=== PATIENT | male | born 2000 | race Caucasian/White ===

== ENCOUNTER → 2020-04-27 | Outpatient (CLI) | payer OTHER | END | disposition home or self-care (01) | LOC: LAB 14:34 | PROVIDERS: ATTEND Registered Nurse | DX: B83.9 Helminthiasis, unspecified (principal) | CPT/HCPCS: 87045; 87177; 87209 ==

== ENCOUNTER 2020-06-15 13:55 | Emergency (ER) | payer OTHER ==
[~2020-06-15] VITALS: Ht 175.3 cm; Wt 84.5 kg
--- NOTE | 2020-06-15 15:13 | PHYS DOC ---
Past History Past Medical History: No Pertinent History Past Surgical History: No Surgical History Alcohol Use: Occasionally Adult General Chief Complaint Chief Complaint: ABDOMINAL PAIN HPI HPI Patient is a 20 year old male patient who presents with periumbilical and right lower quadrant pain. Patient states he had this pain came on suddenly this mor tristan, and has progressively gotten a little better. States he has never had discomfort like this in the past, states no fever, no nausea, but also he has had no appetite today. States he has eaten today was his vitamins and an energy drink, which she was unable to drink fully. States he did drink some water afterwards and has been able to keep that down, however discontinued did not have an appetite to eat anything. States this is all very unusual for him, he reports bowel movement yesterday, no changes in stool. Denies concern for STIs, denies urinary changes. States the pain just felt a squeezing which worsened, but has since improved. Review of Systems Review of Systems Constitutional: Denies fever or chills, [] Eyes: Denies change in visual acuity, redness, or eye pain [] HENT: Denies nasal congestion or sore throat [] Respiratory: Denies cough or shortness of breath [] Cardiovascular: No additional information not addressed in HPI [] GI: Denies vomiting, bloody stools or diarrhea complains of some periumbilical abdominal pain. States decreased appetite. [] : Denies dysuria or hematuria denies change in urination, denies painful urination, denies dysuria, denies penile discharge [] Musculoskeletal: Denies back pain or joint pain [] Integument: Denies rash or skin lesions [] Neurologic: Denies headache, focal weakness or sensory changes [] Endocrine: Denies polyuria or polydipsia [] All other systems were reviewed and found to be within normal limits, except as documented in this note. Allergies Allergies Allergies Coded Allergies Type Severity Reaction Last Updated Verified No Known Drug Allergies 06/15/20 No Physical Exam Physical Exam Constitutional: Well developed, well nourished, no acute distress, non-toxic appearance. [] HENT: Normocephalic, atraumatic, bilateral external ears normal, oropharynx moist, no oral exudates, nose normal. [] Eyes: PERRLA, EOMI, conjunctiva normal, no discharge. [] Neck: Normal range of motion, no tenderness, supple, no stridor. [] Cardiovascular:Heart rate regular rhythm, no murmur [] Lungs & Thorax: Bilateral breath sounds clear to auscultation [] Abdomen: Bowel sounds diminished, soft, periumbilical and right lower quadrant tenderness, no masses, no pulsatile masses. Positive psoas negative Rovsing negative obturator [] Skin: Warm, dry, no erythema, no rash. [] Back: No tenderness, no CVA tenderness. [] Extremities: No tenderness, no cyanosis, no clubbing, ROM intact, no edema. [] Neurologic: Alert and oriented X 3, normal motor function, normal sensory function, no focal deficits noted. [] Psychologic: Affect normal, judgement normal, mood normal. [] Current Patient Data Vital Signs Vital Signs Date Time Temp Pulse Resp B/P (MAP) Pulse Ox O2 Delivery O2 Flow Rate FiO2 06/15/20 14:10 98.5 73 20 132/77 (95) 99 Room Air EKG EKG [] Radiology/Procedures Radiology/Procedures PROCEDURE: CT ABD PELV W/ IV CONTRST ONLY PQRS Compliance Statement: One or more of the following individualized dose reduction techniques were utilized for this examination: 1. Automated exposure control 2. Adjustment of the mA and/or kV according to patient size 3. Use of iterative reconstruction technique CT abdomen/pelvis with contrast 06/15/2020 2:58 PM INDICATION: Right lower quadrant and periumbilical pain COMPARISON: None available TECHNIQUE: Multiple axial CT images of the abdomen and pelvis were obtained after the intravenous administration of 75 mL Isovue-370. Coronal and sagittal reformats are provided. FINDINGS: Lung bases are clear. Heart size is within normal limits. Liver, spleen, bilateral adrenal glands, pancreas and gallbladder are normal in appearance. Abdominal aorta is normal in course and caliber. No pathologically enlarged lymph nodes are identified in abdomen and pelvis. There no free fluid or free intraperitoneal air. Small large bowel are normal in caliber. Moderate amount stool noted throughout the colon. Appendix is normal in appearance (series 2, image 54/58). Kidneys enhance symmetrically. No suspicious renal mass. No hydronephrosis. Urinary bladder is within normal limits given degree of distention. Prostate and seminal vesicles appear normal. No suspicious osseous abnormality is identified. IMPRESSION: No acute abnormality is identified in abdomen and pelvis. Specifically no CT findings to suggest appendicitis. Electronically signed by: Catie Allison MD (06/15/2020 3:39 PM) [facility][] Heart Score Risk Factors: Risk Factors: DM, Current or recent (<one month) smoker, HTN, HLP, family history of CAD, obesity. Risk Scores: Risk Factors: DM, Current or recent (<one month) smoker, HTN, HLP, family history of CAD, obesity. Course & Med Decision Making Course & Med Decision Making Pertinent Labs and Imaging studies reviewed. (See chart for details) [] Reviewed lab and imaging results with patient, without noted abnormalities today. Recommend patient continue to increase fluid hydration, diet. Follow-up with primary care or providers on [place] as needed. Patient agreed with this plan with no further questions or concerns. Dragon Disclaimer Dragon Disclaimer This electronic medical record was generated, in whole or in part, using a voice recognition dictation system. Departure Departure: Impression: Primary Impression: Constipation Additional Impression: Abdominal pain Disposition: 01 DC HOME SELF CARE/HOMELESS Condition: GOOD Referrals: PCP,UNKNOWN (PCP) Patient Instructions: Abdominal Pain, Constipation, Adult Additional Instructions: As discussed, ensure you are hydrating Improve your diet You may take Tylenol or Ibuprofen as needed for discomfort [place] Problem Qualifiers Primary Impression: Constipation Constipation type: unspecified constipation type Qualified Codes: K59.00 - Constipation, unspecified Additional Impression: Abdominal pain Abdominal location: generalized Qualified Codes: R10.84 - Generalized abdominal pain MYRNA STERLING APRN Jun 15, 2020 15:13
[2020-06-15] MEDS ORDERED: IOHEXOL 300 MG/ML 75 ML VIAL. IV ONE (15:15)
[2020-06-15 15:33] LABS: BASO % 0 % (0-3); EOS # 0.1 x10^3/uL (0.0-0.7); EOS % 1 % (0-3); HEMATOCRIT 48.5 % (39.0-53.0); HEMOGLOBIN 16.2 g/dL (13.0-17.5); LYMPH # 2.8 x10^3/uL (1.0-4.8); LYMPH % 29 % (24-48); MEAN CORPUSCULAR HEMOGLOBIN 29 pg (25-35); MEAN CORPUSCULAR HGB CONC 33 g/dL (31-37); MEAN CORPUSCULAR VOLUME 88 fL (79-100); MONO # 0.5 x10^3/uL (0.0-1.1); MONO % 5 % (0-9); NEUT # 6.5 x10^3uL (1.8-7.7); NEUT % 65 % (31-73); PLATELET COUNT 264 x10^3/uL (140-400); RED BLOOD COUNT 5.53 x10^6/uL (4.30-5.70); RED CELL DISTRIBUTION WIDTH 12.5 % (11.5-14.5)
--- NOTE | 2020-06-15 15:42 | RAD ---
PQRS Compliance Statement: One or more of the following individualized dose reduction techniques were utilized for this examination: 1. Automated exposure control 2. Adjustment of the mA and/or kV according to patient size 3. Use of iterative reconstruction technique CT abdomen/pelvis with contrast 06/15/2020 2:58 PM INDICATION: Right lower quadrant and periumbilical pain COMPARISON: None available TECHNIQUE: Multiple axial CT images of the abdomen and pelvis were obtained after the intravenous administration of 75 mL Isovue-370. Coronal and sagittal reformats are provided. FINDINGS: Lung bases are clear. Heart size is within normal limits. Liver, spleen, bilateral adrenal glands, pancreas and gallbladder are normal in appearance. Abdominal aorta is normal in course and caliber. No pathologically enlarged lymph nodes are identified in abdomen and pelvis. There no free fluid or free intraperitoneal air. Small large bowel are normal in caliber. Moderate amount stool noted throughout the colon. Appendix is normal in appearance (series 2, image 54/58). Kidneys enhance symmetrically. No suspicious renal mass. No hydronephrosis. Urinary bladder is within normal limits given degree of distention. Prostate and seminal vesicles appear normal. No suspicious osseous abnormality is identified. IMPRESSION: No acute abnormality is identified in abdomen and pelvis. Specifically no CT findings to suggest appendicitis. Electronically signed by: Catie Allison MD (06/15/2020 3:39 PM) [facility]
[2020-06-15 15:43] LABS: CALCIUM 9.5 mg/dL (8.5-10.1); CREATININE 1.3 mg/dL (0.7-1.3); GFR 69.7; POTASSIUM 3.6 mmol/L (3.5-5.1)
[2020-06-15 15:45] LABS: ALBUMIN 4.5 g/dL (3.4-5.0); ALBUMIN/GLOBULIN RATIO 1.3 (1.0-1.7); TOTAL BILIRUBIN 0.6 mg/dL (0.2-1.0)
[2020-06-15 16:20] VITALS: BP 116/71
== END 2020-06-15 16:25 | disposition home or self-care (01) ==
LOC: ER 13:55
DX: K59.00 Constipation, unspecified (principal); R10.84 Generalized abdominal pain
CPT/HCPCS: 36415; 74177; 80053; 82150; 85025; 99285; Q9967